=== PATIENT | female | born 1940 | race Caucasian/White ===

== ENCOUNTER 2020-05-03 08:36 | Outpatient (CLI) | payer MEDICARE, SELFPAY ==
--- NOTE | 2020-05-03 08:41 | ECG_ITS ---
Measurements Intervals [place] Rate: 62 P: 12 TX: 151 QRS: -21 QRSD: 125 T: 14 QT: 408 QTc: 417 Interpretive Statements SINUS RHYTHM VENTRICULAR PREMATURE COMPLEX INTRAVENTRICULAR CONDUCTION DELAY LEFT VENTRICULAR HYPERTROPHY WITH ST-T CHANGE ANTERIOR INFARCT, AGE INDETERMINATE INFERIOR INFARCT, AGE INDETERMINATE BASELINE ARTIFACT- V3-V4 ABNORMAL ECG Electronically Signed On 05-03-2020 9:07:09 CDT by Matt Del Cid D.O.
[2020-05-03 09:45] LABS: Anion Gap 5 mmol/L (8-16); Blood Urea Nitrogen 25 mg/dL (7-17); Calcium 9.5 mg/dL (8.4-10.2); Carbon Dioxide 34 mmol/L (22-30); Chloride 97 mmol/L (98-107); Estimated Glomerular Filt Rate > 60; Glucose 97 mg/dL (65-105); Potassium 4.3 mmol/L (3.4-5.0); Sodium 136 mmol/L (137-145)
== END 2020-05-03 08:37 | disposition home or self-care (01) ==
PROVIDERS: Anesthesiology; PCP Nurse Practitioner Gerontology; Visit Provider Urology
DX: Z01.818 Encounter for other preprocedural examination (principal); I10 Essential (primary) hypertension; N81.4 Uterovaginal prolapse, unspecified; R94.31 Abnormal electrocardiogram [ECG] [EKG]
CPT/HCPCS: 36415; 80048; 87077; 87086; 87088; 87186; 93005

== ENCOUNTER 2020-05-10 00:42 | Outpatient (CLI) | payer MEDICARE, SELFPAY ==
[2020-05-10 18:19] LABS: SARS-CoV-2 RNA PCR Negative
== END 2020-05-10 00:43 | disposition home or self-care (01) ==
LOC: ANHCOVIDDT 00:43
PROVIDERS: Visit Provider Urology
DX: Z01.812 Encounter for preprocedural laboratory examination (principal); Z20.828 Contact with and (suspected) exposure to other viral communicable diseases
CPT/HCPCS: 87635; C9803; U0003

== ENCOUNTER 2020-05-12 01:08 | Day surgery (SDC) | payer MEDICARE, SELFPAY ==
[2020-05-02 10:46] VITALS: BMI 35.9
--- NOTE | 2020-05-06 11:06 | PM.IMHP ---
H&P: HPI History of Present Illness Date/Time: 05/06/20 11:06 Chief complaint: Cystocele Narrative: Lilibeth Wagner is a 79 year old female with a cystocele. NO tereso on uro PMFSH Social History Social History Smoking status: Never smoker Alcohol intake: never Substance use: never Spiritual care concerns: No Meds Home Medications and Allergies Home Medications Medication Instructions Recorded Confirmed Type furosemide [Lasix] 40 mg PO DAILY 05/02/20 05/02/20 History lisinopril-hydrochlorothiazide 1 tablet DAILY 05/02/20 05/02/20 History [Zestoretic] potassium chloride 10 meq PO DAILY 05/02/20 05/02/20 History Allergies Allergy/AdvReac Type Severity Reaction Status Date / Time No Known Allergies Allergy Verified 05/02/20 10:50 Exam : Other: cystocele to introitus Assessment and Plan Assessment and plan (1) Cystocele: Status: Acute Assessment and Plan: cystocele repair
--- NOTE | 2020-05-11 11:41 | P.PNAN_ITS ---
Anes - Initial Pre Proc Eval Procedure: Operation Date: 05/12/20 07:30 Proposed Procedures p Cystocele Repair - Regis Finley MD Date/Time: 05/11/20 11:41 Surgeon: Regis Finley MD Pre Op Diagnosis: Cystocele Patient Data Age: 79 Gender: F Height: 1.68 m Weight: 100.9 kg Allergies Allergy/AdvReac Type Severity Reaction Status Date / Time No Known Allergies Allergy Verified 05/12/20 06:39 Home Medications Medication Instructions Recorded Confirmed Type furosemide [Lasix] 40 mg PO DAILY 05/02/20 05/02/20 History lisinopril-hydrochlorothiazide 1 tablet DAILY 05/02/20 05/02/20 History [Zestoretic] potassium chloride 10 meq PO DAILY 05/02/20 05/02/20 History Patient hx anesthesia problems: post op nausea/vomiting Family hx anesthesia problems: none [facility] Past Medical History Medical History (Updated 05/11/20 @ 11:41 by Miguelangel Garnett DO) History of lymphoma chemo - 2017 Hypertension Surgical History Surgical History (Updated 05/11/20 @ 11:41 by Miguelangel Garnett DO) History of appendectomy History of cholecystectomy History of hysterectomy Social History Social History Smoking status: Never smoker Alcohol intake: never Substance use: never Living arrangements: with family Spiritual care concerns: No Anes - Eval Final PreProcedure Day of Procedure 05/11/20 11:41 Patient weight: obese Heart: regular rate and rhythm Lungs: clear to auscultation and normal air movement Airway: Mallampati scale class II Neurological: alert and oriented Last oral intake: >/= 8 hours ASA classification: III Emergent: no Anesthetic plan: proceed Anesthesia type and monitoring: general LMA and standard monitoring Informed Consent: The patient's anesthetic plan and its attendant risks and benefits were discussed with the patient/family/POA. Questions were solicited and answers provided to the satisfaction of the patient/family/POA.
[2020-05-12] VITALS (7 sets, daily range): BP systolic 119–147; BP diastolic 74–86; PULSE 57–80; RESP 12–18; TEMP 36.3; O2SAT 96–100
[2020-05-12] MEDS: LACTATED RINGERS 1,000 ML 30 ML IV CONT (06:31)
--- NOTE | 2020-05-12 07:17 | WPDHPUPDATE1 ---
History and Physical Update Update Date/Time: 05/12/20 07:17 History and Physical has been reviewed, including an updated exam of the patient. There are NO changes in the patient's condition. Risks, benefits, and alternatives have been discussed and questions answered. Patient agrees to proceed with procedure.
[2020-05-12] MEDS: ceFAZolin 2 GM/D5W 50 ML 2 GM/50 ML BAG IVPB (07:29)
[2020-05-12] MEDS: BUPIVACAINE/EPINEPHRINE 0.25% 50 ML VIAL INFILTRATE (08:03)
--- NOTE | 2020-05-12 08:28 | P.OP_ITS ---
Procedure Note - Detailed Date of procedure: 05/12/20 Pre-op diagnosis: Cystocele Cystocele Female perineal laxity Post-op diagnosis: same Procedure performed: Cystocele repair/anterior colporrhaphy perineoplasty Description of procedure: She understood the risks of bleeding, infection, damage to surrounding organs, dyspareunia, postoperative stress incontinence, and recurrence of prolapse. She agrees to proceed. She has correctly identified and informed consent was obtained and she was brought to the operating room. She was given general anesthesia. She was placed in the dorsal thigh position. She was prepped and draped in sterile fashion. Given appropriate perioperative antibiotics. A time-out was performed. I placed a Shepherd catheter. I placed a [place] retractor. she had quite a bit of lichen sclerosis and a thickened Skin. I infiltrated the subcutaneous tissues of the anterior vaginal wall with local mixed with injectable saline. I made a midline vaginal incision. I dissected out lat erally dissecting the mucosa off the underlying fascial structures. I dissected towards the vaginal apex as well. I then performed a standard cystocele repair with plicating sutures of 0 Vicryl. This reduced the cystocele. I then trimmed excess vaginal mucosa. I closed the vaginal closed with a running 2 0 Vicryl suture. There was excellent hemostasis. I then marked out a crystal-shaped area of skin on the perineum. I anesthetized the skin and removed it. I performed a perineal repair with 0 Vicryl suture. I used a 2 Vicryl to close the mucosa. There is excellent perineal support without undue narrowing of the vagina I then performed cystoscopy. The bladder is examined. There is no surgical artifact or injury. Both ureteral orifices were seen to excrete clear yellow urine. At the conclusion she was awakened and transferred to the PACU in stable condition. Sponge count is correct x2. Implants: None Anesthesia: GETA Surgeon: Regis Finley MD Drains: No Packing: No Pathology: none sent Complications: No immediate complications Condition: stable Disposition: PACU
== END 2020-05-12 10:30 | disposition home or self-care (01) ==
PROVIDERS: PCP Nurse Practitioner Gerontology; Visit Provider Urology
PROC: (CPT 57240; principal; 2020-05-12 07:30)
DX: N81.10 Cystocele, unspecified (principal); N81.89 Other female genital prolapse; L90.0 Lichen sclerosus et atrophicus; I10 Essential (primary) hypertension; E66.9 Obesity, unspecified; Z68.35 Body mass index [BMI] 35.0-35.9, adult; Z85.72 Personal history of non-Hodgkin lymphomas; Z92.21 Personal history of antineoplastic chemotherapy; Z79.899 Other long term (current) drug therapy
CPT/HCPCS: 57240; 56810; A9270; J0690; J1100; J2405; J2704; J3010; J7030; J7120